=== PATIENT | female | born 1950 | race Caucasian/White ===

== ENCOUNTER → 2016-12-21 | Outpatient (CLI) | payer OTHER ==
[2016-12-21 16:52] LABS: HEMATOCRIT 38.3 % (37.0-47.0); HEMOGLOBIN 13.7 g/dL (12.0-16.0); MEAN CORPUSCULAR HGB CONC 35.8 g/dL (33-37); MEAN CORPUSCULAR VOLUME 89.5 FL (81-99); RED BLOOD COUNT 4.28 10^6/uL (4.20-5.40)
[2016-12-21 17:00] LABS: BLOOD UREA NITROGEN 9 mg/dL (7-22); CALCIUM 9.5 mg/dL (8.7-10.7); EST GLOMERULAR FILTRATION > 60 (>60 ml/min/1.73m(2))
[2016-12-21 17:16] LABS: HEMOGLOBIN A1C 7.58 % (4.2-6.0)
== END ==
LOC: MOB LAB 14:49
PROVIDERS: ATTEND Student in an Organized Health Care Education/Training Program
DX: H26.9 Unspecified cataract (principal); E11.65 Type 2 diabetes mellitus with hyperglycemia; I10 Essential (primary) hypertension
CPT/HCPCS: 36415; 80048; 83036; 85027